=== PATIENT | male | born 1990 | race Caucasian/White ===

== ENCOUNTER 2022-12-25 19:11 | Emergency (ER) | payer SELFPAY ==
[~2022-12-25] VITALS: Ht 182.9 cm; Wt 86.2 kg
[2022-12-25] MEDS ORDERED: IBUPROFEN 600 MG TAB PO STA (19:21)
[2022-12-25] MEDS ORDERED: CYCLOBENZAPRINE HCL 10 MG TAB PO ONE (19:30)
[2022-12-25] MEDS ORDERED: IBUPROFEN600 MG PO (19:58)
[2022-12-25] MEDS ORDERED: METHOCARBAMOL750 MG PO (19:58)
[2022-12-25 20:03] VITALS: BP 117/73
[2022-12-25] MEDS ORDERED: CYCLOBENZAPRINE HCL 10 MG TAB ONE (20:19)
[2022-12-25] MEDS ORDERED: IBUPROFEN 600 MG TAB ONE (20:19)
== END 2022-12-25 20:14 | disposition home or self-care (01) ==
LOC: ER 19:27
DX: S46.812A Strain of other muscles, fascia and tendons at shoulder and upper arm level, left arm, initial encounter (principal); V43.52XA Car driver injured in collision with other type car in traffic accident, initial encounter; Y92.488 Other paved roadways as the place of occurrence of the external cause
CPT/HCPCS: 99283